=== PATIENT | female | born 1955 | race Two or more races ===

== ENCOUNTER → 2023-02-25 | Day surgery (SDC) | payer MEDICARE, MEDICAID ==
[~2023-02-25] VITALS: Ht 156.2 cm; Wt 64.4 kg
[~2023-02-25] MED LIST: ASPI-1497 PO; BALANCED SALT IRRIG SOLN 15ML ONE; BUPIVACAINE HCL/PF 0.75% (7.5MG/ML) 10ML ONE; CIPROFLOXACIN 0.3% OPHTH SOLN 2.5ML ONE; EMPA10TA PO; FENTANYL CITRATE/PF 50MCG/ML 2ML VIAL ONE; IBUP-2029 PO; KETOROLAC 30MG/ML VIAL ONE; LIDOCAINE HCL 2%/EPINEPHRINE 1:100,000 20 ML VIAL INFIL ONE; LIDOCAINE HCL/PF 2% 20MG/ML 5 ML/VIAL ONE; LISI-186 PO; METF-414 PO; MIDAZOLAM HCL 2 MG/2 ML VIAL ONE; PREDNISOLONE ACETATE 1% OPHTH DROPS 5ML ONE; PROPOFOL 200MG/20ML VIAL IV ONE; SODIUM CHLORIDE 0.9% 1,000 ML IV SCH; TETRACAINE 0.5% OPHTH DROPS 4ML ONE; TRIAMCINOLONE ACETONIDE 40MG/ML 1ML VIAL ONE
== END | disposition home or self-care (01) ==
LOC: OR 10:23
PROVIDERS: ATTEND Ophthalmology
DX: H11.002 Unspecified pterygium of left eye (principal); C44.1091 Unspecified malignant neoplasm of skin of left upper eyelid, including canthus; I10 Essential (primary) hypertension; E11.9 Type 2 diabetes mellitus without complications; Z79.82 Long term (current) use of aspirin; Z79.84 Long term (current) use of oral hypoglycemic drugs; Z79.899 Other long term (current) drug therapy; Z98.890 Other specified postprocedural states; Z20.822 Contact with and (suspected) exposure to COVID-19
CPT/HCPCS: 65426; 67840; 82962; 87426; C9803; J1885; J2250; J2704; J3010; J3490; Z7610; J3301